=== PATIENT | female | born 1995 | race African-American/Black ===

== ENCOUNTER 2025-02-25 12:22 | Emergency (ER) | payer MEDICAID, OTHER ==
[~2025-02-25] VITALS: Ht 160 cm; Wt 46.8 kg
[2025-02-25 12:24] VITALS: TEMP 98.7
[2025-02-25 14:27] VITALS: BP 120/79; O2SAT 99
[2025-02-25] MEDS ORDERED: IBUP80TA PO (14:28)
[2025-02-25] MEDS ORDERED: AMOX875T2 PO (14:28)
[2025-02-25] MEDS: IBUPROFEN 800 MG TAB PO ONE (14:38)
[2025-02-25] MEDS: BENZOCAINE 20% GEL 9 GM TUBE TOP ONE (14:38)
== END 2025-02-25 14:43 | disposition home or self-care (01) ==
LOC: M ED 12:22 → EDBD 12:22 → M ED 14:43
DX: K08.89 Other specified disorders of teeth and supporting structures (principal); B34.1 Enterovirus infection, unspecified; Z79.1 Long term (current) use of non-steroidal anti-inflammatories (NSAID); Z79.2 Long term (current) use of antibiotics